=== PATIENT | male | born 1990 | race American Indian/Alaskan Native ===

== ENCOUNTER 2017-11-30 11:00 | Emergency (ER) | payer BC ==
[2017-11-30] MEDS ORDERED: BENADRYL IV ONE (13:08)
[2017-11-30] MEDS ORDERED: BENTYL PO ONE (13:08)
[2017-11-30] MEDS ORDERED: NACL 0.9% 1000 ML 1,000 ML IV ONE (13:08)
[2017-11-30] MEDS ORDERED: REGLAN IV ONE (13:08)
--- NOTE | 2017-11-30 13:14 | Emergency Department Report ---
ED N/V/D HPI - General Chief complaint: Abdominal Pain Stated complaint: SEVERE ADOMINAL PAIN/VOMITTING Time Seen by Provider: 11/30/17 12:52 Source: patient Mode of arrival: Ambulatory Limitations: No Limitations - History of Present Illness Initial comments: Mr wolff is a 27 year-old man with hx of IDDM who presents from home with 3 days of nausea, vomiting and diarrhea. None today. Does endorse some cramping abdominal pain. no fever. no pain with urination. Able to keep down liquids now. No stools today. Stools have been loose, brown. Were dark once after having pepto. No blood. Has not been managing his sugars well this week due to illness, have been in 200s. No other complaints. MD complaint: nausea, vomiting, diarrhea ED Review of Systems ROS: Stated complaint: SEVERE ADOMINAL PAIN/VOMITTING Other details as noted in HPI Comment: All other systems reviewed and negative ED Past Medical Hx - Past Medical History Previous Medical History?: Yes Hx Diabetes: Yes (type 1) Additional medical history: herpes, syphillis - Surgical History Past Surgical History?: No - Social History Smoking Status: Never Smoker ED Physical Exam - General Limitations: No Limitations General appearance: alert, in no apparent distress - Head Head exam: Present: atraumatic, normocephalic - Eye Eye exam: Present: normal appearance, EOMI - ENT ENT exam: Present: normal exam, mucous membranes moist - Neck Neck exam: Present: normal inspection. Absent: tenderness, meningismus - Respiratory Respiratory exam: Present: normal lung sounds bilaterally. Absent: respiratory distress, wheezes, rales - Cardiovascular Cardiovascular Exam: Present: regular rate, normal rhythm. Absent: systolic murmur, diastolic murmur, rubs, gallop - GI/Abdominal GI/Abdominal exam: Present: soft, normal bowel sounds. Absent: distended, tenderness, guarding, rebound - Rectal Rectal exam: Present: deferred - Extremities Exam Extremities exam: Present: normal inspection. Absent: tenderness - Back Exam Back exam: Present: normal inspection. Absent: tenderness, CVA tenderness (R), CVA tenderness (L) - Neurological Exam Neurological exam: Present: alert, oriented X3 - Psychiatric Psychiatric exam: Present: normal affect, normal mood - Skin Skin exam: Present: warm, dry, intact, normal color. Absent: rash ED Course Vital Signs 11/30/17 11/30/17 11:29 13:27 Temperature 77.8 F L 98.5 F Pulse Rate 101 H Respiratory 16 Rate Blood Pressure 136/91 O2 Sat by Pulse 99 Oximetry ED Medical Decision Making - Lab Data Result diagrams: 11/30/17 13:38 11/30/17 13:38 Lab Results 11/30/17 11/30/17 11/30/17 Range/Units 11:36 13:38 13:38 WBC 8.5 (4.5-11.0) K/mm3 RBC 5.80 H (3.65-5.03) M/mm3 Hgb 16.8 H (11.8-15.2) gm/dl Hct 50.5 H (35.5-45.6) % MCV 87 (84-94) fl MCH 29 (28-32) pg MCHC 33 (32-34) % RDW 12.8 L (13.2-15.2) % Plt Count 272 (140-440) K/mm3 Sodium 135 L (137-145) mmol/L Potassium 3.9 (3.6-5.0) mmol/L Chloride 91.1 L (98-107) mmol/L Carbon Dioxide 28 (22-30) mmol/L Anion Gap 20 mmol/L BUN 13 (9-20) mg/dL Creatinine 0.7 L (0.8-1.5) mg/dL Estimated GFR > 60 ml/min BUN/Creatinine Ratio 19 % Glucose 270 H (75-100) mg/dL POC Glucose 287 H (70-105) Calcium 9.9 (8.4-10.2) mg/dL Total Bilirubin 0.90 (0.1-1.2) mg/dL AST 12 (5-40) units/L ALT 13 (7-56) units/L Alkaline Phosphatase 89 (35-129) units/L Total Protein 7.5 (6.3-8.2) g/dL Albumin 4.5 (3.9-5) g/dL Albumin/Globulin Ratio 1.5 % - Medical Decision Making Mr wolff is a 27 year-old man with hx of type 1 DM who presents with NVD for three days. Improving today. Seen at urgent care, told to come here. Exam benign. mild tachycardia. Temperature put in wrong, not 77F. normal, afebrile. Suspect this is gastroenteritis. Giving fluids, checking labs for DKA, dehydration, leukocytosis, transaminitis. Giving fluids, reglan, benadryl and bentyl. Labs wnl, mild hyperglycemia without acidosis. Symptoms improved. Taking PO. DC to home with care instructions, return precautions. Critical care attestation.: If time is entered above; I have spent that time in minutes in the direct care of this critically ill patient, excluding procedure time. ED Disposition Clinical Impression: Gastroenteritis Disposition: DC-01 TO HOME OR SELFCARE Is pt being admited?: No Does the pt Need Aspirin: No Condition: Stable Instructions: Gastroenteritis (ED), Acute Nausea and Vomiting (ED) Referrals: PRIMARY CARE, [Primary Care Provider] - 3-5 Days
[2017-11-30 14:29] LABS: Hematocrit 50.5 % (35.5-45.6); Hemoglobin 16.8 gm/dl (11.8-15.2); Mean Corpuscular HGB Conc 33 % (32-34); Mean Corpuscular Hemoglobin 29 pg (28-32); Mean Corpuscular Volume 87 fl (84-94); Platelet Count 272 K/mm3 (140-440); Red Cell Distribution Width 12.8 % (13.2-15.2)
[2017-11-30 14:36] LABS: Alanine Aminotransferase 13 units/L (7-56); Albumin 4.5 g/dL (3.9-5); BUN/Creatinine Ratio 19; Blood Urea Nitrogen 13 mg/dL (9-20); Calcium 9.9 mg/dL (8.4-10.2); Hemolysis Index 10
[2017-11-30 16:25] VITALS: BP 132/88
== END 2017-11-30 16:24 | disposition home or self-care (01) ==
LOC: ED 11:00
DX: K52.9 Noninfective gastroenteritis and colitis, unspecified (principal); E10.9 Type 1 diabetes mellitus without complications
CPT/HCPCS: 36415; 80053; 82962; 85027; 96361; 96374; 96375; 99283; J1200; J2765; J7030